=== PATIENT | male | born 1965 | race Caucasian/White ===

== ENCOUNTER 2022-11-02 09:57 | Inpatient (IN) | payer MEDICAID, SELFPAY ==
[2022-11-02] VITALS (7 sets, daily range): BP systolic 136–173; BP diastolic 86–101; PULSE 77–131; RESP 18–26; TEMP 35.6–37.2; O2SAT 96–98; BMI 32.1
--- NOTE | 2022-11-02 10:13 | EX.ED.SAOD ---
HPI History of Present Illness Chief Complaint: Substance Abuse Narrative Narrative: 57-year-old male past medical history of diabetes, hypertension, alcoholism last went through rehab sometime last year presents with withdrawal from alcohol. He states he drinks 1/5 of whiskey daily. He has done so for years. He states he was sober for a while, but started drinking alcohol again. His last drink was at 5:00 this morning, over 5 hours ago. He states he went to [facility] who sent him here for detox/rehab. He complains of abdominal pain with nausea and shakiness. [facility] Medical History (Updated 11/02/22 @ 12:15 by Kevin Tucker MD) Back fracture COPD (chronic obstructive pulmonary disease) Diabetes Hypertension Liver cirrhosis Home Medications albuterol sulfate 90 mcg/actuation aerosol inhaler 2 puff inhalation Q6H PRN COPD 11/02/22 [History Last Taken 10/31/22] dicyclomine 10 mg capsule 10 mg PO ACHS IBS 11/02/22 [History Last Taken 11/01/22] dulaglutide 0.75 mg/0.5 mL subcutaneous pen injector (Trulicity) 0.75 mg subcut QWEEK DM 11/02/22 [History Last Taken 2 Weeks Ago ~10/19/22] folic acid 1 mg tablet 1 mg PO DAILY SUPPLEMENT 11/02/22 [History Last Taken 11/01/22] gabapentin 600 mg tablet 600 mg PO TID NERVE PAIN 11/02/22 [History Last Taken 11/01/22] ibuprofen 400 mg tablet 800 mg PO BID PRN PRN Moderate Pain (Scale Score 5-6) 11/02/22 [History Last Taken 11/01/22] insulin glargine 100 unit/mL (3 mL) subcutaneous pen (Basaglar KwikPen U-100 Insulin) 50 unit subcut BID DM 11/02/22 [History Last Taken 11/01/22] losartan 100 mg tablet 100 mg PO DAILY BP 11/02/22 [History Last Taken 11/01/22] metformin 500 mg tablet 500 mg PO BIDCM DM 11/02/22 [History Last Taken 11/01/22] multivitamin with folic acid 400 mcg tablet (Therems Multivitamin) 1 tab PO DAILY SUPPLEMENT 11/02/22 [History Last Taken 11/01/22] nortriptyline 25 mg capsule 25 mg PO DAILY@1800 DEPRESSION 11/02/22 [History Last Taken 11/01/22] pioglitazone 30 mg tablet 30 mg PO DAILY DM 11/02/22 [History Last Taken Unknown] sodium chloride 1,000 mg soluble tablet 1,000 mg PO TID SUPPLEMENT 11/02/22 [History Last Taken 11/01/22] thiamine HCl (vitamin B1) 100 mg tablet 100 mg PO DAILY SUPPLEMENT 11/02/22 [History Last Taken 11/01/22] tiotropium bromide 18 mcg capsule with inhalation device (Spiriva with HandiHaler) 18 mcg inhalation DAILY COPD 11/02/22 [History Last Taken 10/31/22] tizanidine 4 mg tablet 4 mg PO DAILY PRN Muscle Spasm 11/02/22 [History Last Taken 11/01/22] Allergy/AdvReac Type Severity Reaction Status Date / Time No Known Allergies Allergy Verified 11/02/22 09:58 Social History Smoking Status: Current every day smoker tobacco type: cigarettes ROS ROS ED ROS Narrative Constitutional: No fever, no chills. HEENT: No sore throat. No neck pain. No loss of vision. No rhinorrhea. Cardiovascular: No chest pain. No palpitations. No pedal edema. Respiratory: No cough, no shortness of breath. Abdominal: Positive abdominal pain. Positive nausea. No vomiting. Genitourinary: No dysuria. No hematuria. Musculoskeletal: No myalgias. No arthralgias. Neurologic: No headaches. No dizziness. No lightheadedness. Shakiness and tremors. Skin: No rash. No change in color. Psychiatric: No depression. No anxiety. EXAM Physical Exam Narrative Exam Narrative: Afebrile. Vital signs noted. HEENT: Normocephalic. Atraumatic. PERRL, EOMI. Neck soft and supple. No point tenderness or step off. Cardiovascular: Positive tachycardia, no murmurs, rubs, or gallops appreciated. Respiratory: No tachypnea. Lungs clear to auscultation bilaterally. Gastrointestinal: Abdomen soft, nontender, with normoactive bowel sounds. No rebound or guarding. Neurological: Awake. Alert. Nonfocal, nonlateralizing. Skin: No rash. Normal color. No pallor. Musculoskeletal: No pedal edema. Full range of motion extremities. Const Vital Signs: 11/02/22 09:58 Temperature 96.0 F L Temperature Source Temporal Pulse Rate 124 H Respiratory Rate 20 H Blood Pressure 154/100 H Blood Pressure Mean 118 Pulse Ox 97 Oxygen Delivery Method Room Air MDM MDM MDM Narrative Medical decision making narrative: Medical screening labs obtained including CBC, CMP, I will add a lipase. Alcohol level and urine for drugs of abuse was also added. Patient is tachycardic and has elevated blood pressure of 154/100, but he does have a history of hypertension. Additionally, he complained of shakiness, but his tremor stopped with intention and sitting on the cot. CBC shows normal white count of 8.3, hemoglobin 12.7, platelet count slightly low at 123 consistent with his alcoholism. Sodium is slightly low at 134, potassium of 3.4. Glucose elevated at 282 consistent with his diabetes but he has a normal anion gap of 12. Ethyl alcohol is elevated at 222. He requested a nicotine patch as he is a pack and a half a day smoker. Additionally, he complained to the RN of shakiness so he was administered Ativan 1 mg intravenously. Patient was discussed with Dr. Fuentes for admission. I do not feel that he is in active withdrawal as his blood alcohol level is over 200. I feel he can be admitted to the general medical floor and does not require ICU care at this time. Patient is in stable condition. Lab Data Attestation: I reviewed the patient's lab results. Labs: Laboratory Results - last 24 hr 11/02/22 11/02/22 11/02/22 10:20 10:20 10:20 WBC 8.3 RBC 5.09 Hgb 12.7 L Hct 39.3 L MCV 77.2 L MCH 25.0 L MCHC 32.3 RDW Std Deviation 50.7 H RDW Coeff of Gregorio 18.3 H Plt Count 123 L MPV 10.7 Immature Gran % (Auto) 0.500 Neut % (Auto) 71.0 H Lymph % (Auto) 19.6 [place] % (Auto) 6.3 Eos % (Auto) 1.8 Baso % (Auto) 0.8 Absolute Neuts (auto) 5.9 Absolute Lymphs (auto) 1.63 Nucleated RBC % 0 Sodium 134 L Potassium 3.4 L Chloride 100 Carbon Dioxide 22.0 Anion Gap 12 BUN 7 Creatinine 1.29 Estim Creat Clear Calc 65.67 Est GFR (MDRD) Af Amer 73 Est GFR (MDRD) Non-Af 61 BUN/Creatinine Ratio 5.4 L Glucose 282 H Calcium 8.3 L Total Bilirubin 0.90 AST 51 H ALT 36 Alkaline Phosphatase 199 H Total Protein 8.5 H Albumin 4.0 Globulin 4.5 H Albumin/Globulin Ratio 0.9 Lipase 174 Ur Drug Screen Comment Ethyl Alcohol 222.0 POC Glucose 11/02/22 11/02/22 10:32 11:55 WBC RBC Hgb Hct MCV MCH MCHC RDW Std Deviation RDW Coeff of Gregorio Plt Count MPV Immature Gran % (Auto) Neut % (Auto) Lymph % (Auto) [place] % (Auto) Eos % (Auto) Baso % (Auto) Absolute Neuts (auto) Absolute Lymphs (auto) Nucleated RBC % Sodium Potassium Chloride Carbon Dioxide Anion Gap BUN Creatinine Estim Creat Clear Calc Est GFR (MDRD) Af Amer Est GFR (MDRD) Non-Af BUN/Creatinine Ratio Glucose Calcium Total Bilirubin AST ALT Alkaline Phosphatase Total Protein Albumin Globulin Albumin/Globulin Ratio Lipase Ur Drug Screen Comment Ethyl Alcohol POC Glucose 279 H Discharge Plan Dx/Rx/DC Orders Clinical Impression: Alcoholism, Desire for detoxification, Shakiness Disposition Disposition: Acute Care Hospital [facility]
[2022-11-02] MEDS: Ondansetron 4 MG/2 ML Vial IV (10:25)
[2022-11-02] MEDS: 0.9% Normal Saline 1,000 ML 999 ML IV (10:25)
[2022-11-02 10:38] LABS: Absolute Lymphocyte Count 1.63 X10^3/uL (0.83-4.51); Absolute Neutrophil Count 5.9 X10^3/uL (2.0-7.7); Basophil# 0.07 X10^3/uL; Basophil% 0.8 % (0-1); Eosinophil# 0.15 X10^3/uL; Eosinophils% 1.8 % (0-5); Hematocrit 39.3 % (40-54); Hemoglobin 12.7 g/dL (13.0-16.5); Lymphocyte # 1.63 X10^3/ul (0.83-4.51); Lymphocyte % 19.6 % (19-41); Mean Corp Hgb Conc 32.3 g/dL (32-36); Mean Corpuscular Volume 77.2 fL (80-94); Mean Platelet Vol. 10.7 fl (6.2-12.0); Monocyte# 0.52 X10^3/uL; Monocyte% 6.3 % (0-10); NRBC Flagged by Analyzer 0 % (0-5); Neutrophil # 5.89 X10^3/uL (2.7-7.7); Platelet Count 123 K/mm3 (150-450); RBC Distribution Width CV 18.3 % (11.6-14.6); RBC Distribution Width SD 50.7 fl (35.1-43.9); Red Blood Count 5.09 M/mm3 (4.6-6.2); White Blood Count 8.3 K/mm3 (4.4-11.0)
[2022-11-02] MEDS: LORazepam 2 MG/ML Syringe 1 MG IV ×2 (10:40→20:36)
[2022-11-02 10:50] LABS: ALB/GLOB Ratio 0.9 RATIO (0.9-2.4); AST(SGOT) 51 U/L (15-37); Alanine Aminotransfer ALT/SGPT 36 U/L (16-61); Alkaline Phosphatase 199 U/L (45-117); Anion Gap 12 (5-15); BUN 7 mg/dL (7-18); BUN/Creat Ratio 5.4 RATIO (10-20); Calcium,Total 8.3 mg/dL (8.5-10.1); Chloride 100 mmol/L (98-107); Creatinine, Serum 1.29 mg/dL (0.70-1.30); EST Glomerular Filtration Rate 61 mL/min (>60); Est Glom Filt Rate - Afr Amer 73 mL/min (>60); Estimated Creatinine Clearance 65.67 ml/min; Globulin 4.5 g/dL (2.2-4.2); Glucose 282 mg/dL (74-106); Lipase 174 U/L (73-393); Potassium 3.4 mmol/L (3.5-5.1); Protein, Total 8.5 g/dL (6.4-8.2); Sodium Level 134 mmol/L (136-145)
[2022-11-02 10:56] LABS: Bedside Glucose 279 mg/dL (74-106)
[2022-11-02 12:17] LABS: Amphetamine Urine VISTA NEGATIVE (<1000 ng/mL); Barbiturate Urine VISTA NEGATIVE (< 200 ng/mL); Benzodiazepine Urine VISTA NEGATIVE (< 200 ng/mL); Cocaine Urine VISTA NEGATIVE (< 300 ng/mL); Ecstacy Urine VISTA NEGATIVE (< 500 ng/mL); Methadone Urine VISTA NEGATIVE (< 300 ng/mL); PCP Urine VISTA NEGATIVE (< 25 ng/mL); THC Urine VISTA NEGATIVE (< 50 ng/mL); Vista UDS pH Range 6
--- NOTE | 2022-11-02 12:23 | CHAPLAIN ---
Type of Pastoral Visit _x__ Initial Visit ___ Follow-up Visit ___ On-call Visit ___ General Patient Visit ___ Spiritual Assessment ___ Family Conference ___ Bereavement ___ Rapid Response ___ Code Blue ___ Other (describe below) Pastoral Care Referral From _x__ Patient ___ Family ___ Nurse ___ Physician ___ Welt Stitcher ___ Television And Radio Repairer ___ Other (describe below) Sacrament/Intervention _x__ Active listening ___ Anointing ___ Jehovah'S Witness ___ Bereavement ___ Communion _x__ Keri exploration ___ _x__ Life review _x__ Prayer ___ Reconciliation ___ Sacrament of Sick _x__ Supportive presence ___ Wedding ___ Other (describe below) Pastoral Comments while in ED the patient requested spiritual care support; pt is to enter the [facility] program and desires daily visits if possible to encourage and talk with him; pt states that family is a mess and I don't know how I got this way after not drinking until seven years ago; pt requesting support to become sober; pt states he may move away from family to a warmer climate; pt states that he is a Church and knows that God is what he needs for help
--- NOTE | 2022-11-02 12:23 | PCM.HP.STD ---
HPI - General General Date of Admission: 11/02/22 Date of Service: 11/02/22 Chief Complaint: Tremors HPI Narrative ONIEL URIARTE, is a 57 M with past medical history is again for alcohol dependence who presents with tremoring. Patient did present to the emergency department expressing the desire to undergo detoxification. He admitted to drinking 1/5 of whiskey daily last drink was around 2 AM on the morning of his presentation. His assessment in the emergency department was consistent with alcohol intoxication and early withdrawal. Admitted to the regular nursing floor for further management [facility] Medical History Back fracture COPD (chronic obstructive pulmonary disease) Diabetes Hypertension Liver cirrhosis Home Medications albuterol sulfate 90 mcg/actuation aerosol inhaler 2 puff inhalation Q6H PRN COPD 11/02/22 [History Last Taken 10/31/22] dicyclomine 10 mg capsule 10 mg PO ACHS IBS 11/02/22 [History Last Taken 11/01/22] dulaglutide 0.75 mg/0.5 mL subcutaneous pen injector (Trulicity) 0.75 mg subcut QWEEK DM 11/02/22 [History Last Taken 2 Weeks Ago ~10/19/22] folic acid 1 mg tablet 1 mg PO DAILY SUPPLEMENT 11/02/22 [History Last Taken 11/01/22] gabapentin 600 mg tablet 600 mg PO TID NERVE PAIN 11/02/22 [History Last Taken 11/01/22] ibuprofen 400 mg tablet 800 mg PO BID PRN PRN Moderate Pain (Scale Score 5-6) 11/02/22 [History Last Taken 11/01/22] insulin glargine 100 unit/mL (3 mL) subcutaneous pen (Basaglar KwikPen U-100 Insulin) 50 unit subcut BID DM 11/02/22 [History Last Taken 11/01/22] losartan 100 mg tablet 100 mg PO DAILY BP 11/02/22 [History Last Taken 11/01/22] metformin 500 mg tablet 500 mg PO BIDCM DM 11/02/22 [History Last Taken 11/01/22] multivitamin with folic acid 400 mcg tablet (Therems Multivitamin) 1 tab PO DAILY SUPPLEMENT 11/02/22 [History Last Taken 11/01/22] nortriptyline 25 mg capsule 25 mg PO DAILY@1800 DEPRESSION 11/02/22 [History Last Taken 11/01/22] pioglitazone 30 mg tablet 30 mg PO DAILY DM 11/02/22 [History Last Taken Unknown] sodium chloride 1,000 mg soluble tablet 1,000 mg PO TID SUPPLEMENT 11/02/22 [History Last Taken 11/01/22] thiamine HCl (vitamin B1) 100 mg tablet 100 mg PO DAILY SUPPLEMENT 11/02/22 [History Last Taken 11/01/22] tiotropium bromide 18 mcg capsule with inhalation device (Spiriva with HandiHaler) 18 mcg inhalation DAILY COPD 11/02/22 [History Last Taken 10/31/22] tizanidine 4 mg tablet 4 mg PO DAILY PRN Muscle Spasm 11/02/22 [History Last Taken 11/01/22] Allergy/AdvReac Type Severity Reaction Status Date / Time No Known Allergies Allergy Verified 11/02/22 09:58 Family History (Updated 11/02/22 @ 12:[address] Dante Fuentes MD) Father Hypertension Mother Hypertension Social History Smoking Status: Current every day smoker tobacco type: cigarettes ROS ROS Narrative GENERAL: denies fever, chills, night sweats, HEENT: denies headache, sinus congestion, RESPIRATORY: denies cough, sputum production, CARDIAC: denies chest pain, palpitations, orthopnea, PND GASTROINTESTINAL: denies abdominal pain, nausea, vomiting, melena, GENITOURINARY: denies dysuria, urgency, frequency, heamaturia EXTREMITY: denies swelling MUSCULOSKELETAL: denies current joint pain or tenderness NEUROLOGIC: denies focal numbness, weakness, tingling HEMATOLOGIC: denies easy bruising and/or hemorrhage INTEGUMENT: denies rashes PSYCHIATRIC: denies suicidal or homicidal ideation Vital Signs Vital Signs Vital Signs: 11/02/22 09:58 Temperature 96.0 F L Temperature Source Temporal Pulse Rate 124 H Respiratory Rate 20 H Blood Pressure 154/100 H Blood Pressure Mean 118 Pulse Ox 97 Oxygen Delivery Method Room Air Weight Weight: 104.355 kg Body Mass Index (BMI) 32.1 Physical Exam Narrative GENERAL: cooperative but has tremors at rest HEENT: Atraumatic; normocephalic EYES; Anicteric, Normal Conjunctiva NECK; supple, normal thyroid, RESPIRATORY: Diminished to auscultation CARDIOVASCULAR: Regular S1 S2, GI: soft, normoactive bowel sounds, : No Renal angle tenderness; EXTREMITIES: No edema, no clubbing, MUSCULOSKELETAL: no muscle wasting NEURO: Awake; no lateralizing signs. SKIN: No Rash PSYCH; Flat affect Results Lab / Micro Data Result Diagrams: 11/02/22 10:20 11/02/22 10:20 Labs: Laboratory Results - last 24 hr 11/02/22 10:20: WBC 8.3, RBC 5.09, Hgb 12.7 L, Hct 39.3 L, MCV 77.2 L, MCH 25.0 L, MCHC 32.3, RDW Std Deviation 50.7 H, RDW Coeff of Gregorio 18.3 H, Plt Count 123 L, MPV 10.7, Immature Gran % (Auto) 0.500, Neut % (Auto) 71.0 H, Lymph % (Auto) 19.6, [place] % (Auto) 6.3, Eos % (Auto) 1.8, Baso % (Auto) 0.8, Absolute Neuts (auto) 5.9, Absolute Lymphs (auto) 1.63, Nucleated RBC % 0 11/02/22 10:20: Sodium 134 L, Potassium 3.4 L, Chloride 100, Carbon Dioxide 22.0, Anion Gap 12, BUN 7, Creatinine 1.29, Estim Creat Clear Calc 65.67, Est GFR (MDRD) Af Amer 73, Est GFR (MDRD) Non-Af 61, BUN/Creatinine Ratio 5.4 L, Glucose 282 H, Calcium 8.3 L, Total Bilirubin 0.90, AST 51 H, ALT 36, Alkaline Phosphatase 199 H, Total Protein 8.5 H, Albumin 4.0, Globulin 4.5 H, Albumin/Globulin Ratio 0.9, Lipase 174 11/02/22 10:20: Ethyl Alcohol 222.0 11/02/22 10:32: POC Glucose 279 H 11/02/22 11:55: Urine Opiates Screen NEGATIVE, Urine Methadone Screen NEGATIVE, Ur Barbiturates Screen NEGATIVE, Ur Phencyclidine Scrn NEGATIVE, Ur Amphetamines Screen NEGATIVE, MDMA (Ecstasy) Screen NEGATIVE, U Benzodiazepines Scrn NEGATIVE, Urine Cocaine Screen NEGATIVE, U Cannabinoids Screen NEGATIVE, Ur Drug Screen Comment Assessment & Plan Assessment/Plan (1) Alcoholism: (2) Desire for detoxification: PLAN: Plan Patient is a 57-year-old gentleman presented with acute alcohol withdrawal 1. Acute alcohol withdrawal - has been admitted to regular nursing floor being managed with phenobarb taper 2. Diabetes mellitus type II -patient's oral hypoglycemics held. Placed on long acting insulin, Accu-Cheks a.c. and at bedtime and covered with sliding scale insulin 3. COPD ? Did continue patient home medications 4. Cirrhosis of the liver -secondary to chronic alcohol use. Counseled on cessation 5. Mild thrombocytopenia ? Secondary to patient cirrhosis of the liver as well as chronic alcohol use 6. Hypertension - Blood pressure controlled, home medications continued with dose adjustment as needed 7. DVT prophylaxis ? Bilateral SCDs Charges/Coding Visit Charges Inpatient E&M: 65905 Init Hosp L2
--- NOTE | 2022-11-02 13:10 | CM.ED ---
Language Pathologist Patient admitting to [facility]. Telephone call to addiction therapist, Harriett. Harriett updated on patient admission. Nayeli Varghese MSW, JOSR-S
[2022-11-02] MEDS: Ibuprofen 600 MG Tablet PO ×2 (13:36→21:42)
[2022-11-02] MEDS: hydrOXYzine PAM 25 MG Capsule 50 MG PO ×3 (13:36→21:51)
[2022-11-02] MEDS: Phenobarbital 32.4 MG Tablet 64.8 MG PO ×3 (13:37→21:43)
[2022-11-02] MEDS: Lactated Ringers 1,000 ML 125 ML IV (13:45)
[2022-11-02] MEDS: Mag Hydrox/Al Hydrox/Simeth 30 ML UDC PO (14:31)
[2022-11-02] MEDS: Gabapentin 600 MG Tablet PO ×2 (14:31→21:42)
--- NOTE | 2022-11-02 15:24 | NURSING ---
pt requesting aerosol Rx, CPS called
[2022-11-02] MEDS: Ipratropium 0.5 MG/2.5 ML SOLUTION INHALATION (15:37)
[2022-11-02] MEDS: Ondansetron 8 MG Tablet PO (16:01)
[2022-11-02] MEDS: Sodium Chloride 1 GM Tablet PO ×2 (16:01→21:42)
[2022-11-02] MEDS: Dicyclomine 10 MG Capsule PO ×2 (16:01→21:42)
[2022-11-02] MEDS: Insulin Lispro 100 UNIT/ML INSULN.PEN SC (16:04)
[2022-11-02 16:15] LABS: Lipase 174 U/L (73-393)
[2022-11-02 16:31] LABS: Bedside Glucose 179 mg/dL (74-106)
[2022-11-02] MEDS: Nortriptyline 25 MG Capsule PO (17:11)
[2022-11-02] MEDS: proMETHazine 25 MG/ML Syringe 12.5 MG IM (17:58)
[2022-11-02] MEDS: Pantoprazole Sodium 40 MG Tablet PO (17:59)
[2022-11-02] MEDS: LORazepam 2 MG/ML Syringe IV (17:59)
[2022-11-02] MEDS: 0.9% Saline Lock 10 ML Syringe IV ×2 (17:59→20:36)
[2022-11-02] MEDS: Losartan Potassium 100 MG Tablet PO (18:09)
[2022-11-02] MEDS: MELATONIN 3 MG TABLET PO (21:42)
[2022-11-02 23:41] LABS: Bedside Glucose 136 mg/dL (74-106)
[2022-11-03 01:16] VITALS: BP 136/82; PULSE 115; RESP 20; TEMP 36.8; O2SAT 94
[2022-11-03] MEDS: Phenobarbital 32.4 MG Tablet 64.8 MG PO ×6 (01:18→21:15)
[2022-11-03 04:18] VITALS: BP 153/92; PULSE 114; RESP 18; TEMP 36.3; O2SAT 98
[2022-11-03] MEDS: hydrOXYzine PAM 25 MG Capsule 50 MG PO ×2 (04:25→20:15)
[2022-11-03] MEDS: Ondansetron 8 MG Tablet PO (04:25)
[2022-11-03] MEDS: Sodium Chloride 1 GM Tablet PO ×3 (06:40→21:21)
[2022-11-03] MEDS: Dicyclomine 10 MG Capsule PO ×4 (06:41→21:16)
[2022-11-03] MEDS: Gabapentin 600 MG Tablet PO ×3 (06:41→21:16)
[2022-11-03 07:50] LABS: Bedside Glucose 192 mg/dL (74-106)
[2022-11-03] MEDS: Insulin Lispro 100 UNIT/ML INSULN.PEN SC ×3 (07:50→21:17)
[2022-11-03] MEDS: Insulin Lispro 100 UNIT/ML INSULN.PEN 10 UNIT SC ×3 (07:51→15:56)
[2022-11-03] MEDS: Pantoprazole Sodium 40 MG Tablet PO (07:52)
[2022-11-03] MEDS: Thiamine Hydrochloride 100 MG Tablet PO (07:52)
[2022-11-03] MEDS: Folic Acid 1 MG Tablet PO (07:52)
--- NOTE | 2022-11-03 07:54 | PCM.PN.HOSP ---
Subjective Subjective Patient did experience significant symptoms resulting in patient being given extra medications including Ativan. Seen this a.m. appears quite lethargic. Objective Data Objective Data Vital Signs: Vital Signs Temp Pulse Resp BP Pulse Ox O2 Del Method 97.4 F L 114 H 18 153/92 H 98 Room Air 11/03/22 04:18 11/03/22 04:18 11/03/22 04:18 11/03/22 04:18 11/03/22 04:18 11/03/22 04:18 Oxygen Delivery Method Room Air Weight: 104.326 kg Body Mass Index (BMI) 32.1 Intake & Output: Intake and Output for Last 24 Hours 11/01/22 11/02/22 11/03/22 23:59 23:59 23:59 Intake Total 2785.42 / 2785.42 800 / 800 Balance 2785.42 / 2785.42 800 / 800 Lab / Micro Data Result Diagrams: 11/02/22 10:20 11/02/22 10:20 Labs: Laboratory Results - last 24 hr 11/02/22 10:20: WBC 8.3, RBC 5.09, Hgb 12.7 L, Hct 39.3 L, MCV 77.2 L, MCH 25.0 L, MCHC 32.3, RDW Std Deviation 50.7 H, RDW Coeff of Gregorio 18.3 H, Plt Count 123 L, MPV 10.7, Immature Gran % (Auto) 0.500, Neut % (Auto) 71.0 H, Lymph % (Auto) 19.6, [place] % (Auto) 6.3, Eos % (Auto) 1.8, Baso % (Auto) 0.8, Absolute Neuts (auto) 5.9, Absolute Lymphs (auto) 1.63, Nucleated RBC % 0 11/02/22 10:20: Sodium 134 L, Potassium 3.4 L, Chloride 100, Carbon Dioxide 22.0, Anion Gap 12, BUN 7, Creatinine 1.29, Estim Creat Clear Calc 65.67, Est GFR (MDRD) Af Amer 73, Est GFR (MDRD) Non-Af 61, BUN/Creatinine Ratio 5.4 L, Glucose 282 H, Calcium 8.3 L, Total Bilirubin 0.90, AST 51 H, ALT 36, Alkaline Phosphatase 199 H, Total Protein 8.5 H, Albumin 4.0, Globulin 4.5 H, Albumin/Globulin Ratio 0.9, Lipase 174 11/02/22 10:20: Ethyl Alcohol 222.0 11/02/22 10:20: Lipase 174 11/02/22 10:32: POC Glucose 279 H 11/02/22 11:55: Urine Opiates Screen NEGATIVE, Urine Methadone Screen NEGATIVE, Ur Barbiturates Screen NEGATIVE, Ur Phencyclidine Scrn NEGATIVE, Ur Amphetamines Screen NEGATIVE, MDMA (Ecstasy) Screen NEGATIVE, U Benzodiazepines Scrn NEGATIVE, Urine Cocaine Screen NEGATIVE, U Cannabinoids Screen NEGATIVE, Ur Drug Screen Comment 11/02/22 16:02: POC Glucose 179 H 11/02/22 21:37: POC Glucose 136 H 11/03/22 07:32: POC Glucose 192 H Physical Exam Narrative GENERAL:has tremors at rest HEENT: Atraumatic; normocephalic EYES; Anicteric, Normal Conjunctiva NECK; supple, normal thyroid, RESPIRATORY: Diminished to auscultation CARDIOVASCULAR: Regular S1 S2, GI: soft, normoactive bowel sounds, : No Renal angle tenderness; EXTREMITIES: No edema, no clubbing, MUSCULOSKELETAL: no muscle wasting NEURO: Awake; no lateralizing signs. SKIN: No Rash PSYCH; Flat affect Assessment & Plan Assessment/Plan (1) Alcoholism: (2) Desire for detoxification: PLAN: Plan Patient is a 57-year-old gentleman presented with acute alcohol withdrawal 1. Acute alcohol withdrawal - has been admitted to regular nursing floor being managed with phenobarb taper ? 11/03/2022 patient has significant symptoms additional Ativan given to his phenobarb taper 2. Diabetes mellitus type II -patient's oral hypoglycemics held. Placed on long acting insulin, Accu-Cheks a.c. and at bedtime and covered with sliding scale insulin 3. COPD ? Did continue patient home medications 4. Cirrhosis of the liver -secondary to chronic alcohol use. Counseled on cessation 5. Mild thrombocytopenia ? Secondary to patient cirrhosis of the liver as well as chronic alcohol use 6. Hypertension - Blood pressure controlled, home medications continued with dose adjustment as needed 7. DVT prophylaxis ? Bilateral SCDs Charges/Coding Visit Charges Inpatient E&M: 44867 Subs Hosp L2
[2022-11-03 08:15] VITALS: BP 136/98; PULSE 107; RESP 18; TEMP 36.8; O2SAT 96
[2022-11-03] MEDS: Insulin Glargine-YFGN 100 UNIT/ML Pen 50 UNIT SC ×2 (09:57→21:16)
[2022-11-03] MEDS: Losartan Potassium 100 MG Tablet PO (11:12)
[2022-11-03 11:36] LABS: Bedside Glucose 147 mg/dL (74-106)
--- NOTE | 2022-11-03 12:01 | CHAPLAIN ---
Type of Pastoral Visit ___ Initial Visit _x__ Follow-up Visit ___ On-call Visit ___ General Patient Visit ___ Spiritual Assessment ___ Family Conference ___ Bereavement ___ Rapid Response ___ Code Blue ___ Other (describe below) Pastoral Care Referral From _x__ Patient ___ Family ___ Nurse ___ Physician ___ Quality Control Supervisor ___ Key Bed Installer ___ Other (describe below) Sacrament/Intervention _x__ Active listening ___ Anointing ___ Buddhist ___ Bereavement ___ Communion ___ Keri exploration ___ ___ Life review _x__ Prayer ___ Reconciliation ___ Sacrament of Sick _x__ Supportive presence ___ Wedding ___ Other (describe below) Pastoral Comments follow up visit as requested by this patient from yesterday; pt states that he is feeling better than yesterday and could sleep, although not in the bed; pt says that he is seriously considering his plan to sell possessions and move to [place]; pt has no contacts there but just wants to get to warmer climate and start over; pt agrees that he needs good support system and that finding a christian would be beneficial; pt welcomes presence and prayer
[2022-11-03] MEDS: Ibuprofen 600 MG Tablet PO (13:51)
[2022-11-03 14:15] VITALS: BP 151/93; PULSE 108; RESP 18; TEMP 36.4; O2SAT 97
[2022-11-03 16:26] LABS: Bedside Glucose 199 mg/dL (74-106)
[2022-11-03] MEDS: Nortriptyline 25 MG Capsule PO (17:50)
[2022-11-03] MEDS: Lidocaine 5% Patch 2 PATCH TOPICAL (17:51)
[2022-11-03 19:45] VITALS: BP 152/97; PULSE 117; RESP 18; TEMP 36.6; O2SAT 96
[2022-11-03] MEDS: MELATONIN 3 MG TABLET PO (21:16)
[2022-11-03 21:40] LABS: Bedside Glucose 289 mg/dL (74-106)
[2022-11-04] MEDS: Ibuprofen 600 MG Tablet PO ×2 (01:18→12:25)
[2022-11-04] MEDS: Phenobarbital 32.4 MG Tablet 64.8 MG PO ×6 (01:18→20:48)
[2022-11-04 01:35] VITALS: BP 124/102; PULSE 114; RESP 18; TEMP 37; O2SAT 96
[2022-11-04] MEDS: Dicyclomine 10 MG Capsule PO ×4 (06:11→20:48)
[2022-11-04] MEDS: Gabapentin 600 MG Tablet PO ×3 (06:11→20:48)
[2022-11-04] MEDS: Sodium Chloride 1 GM Tablet PO ×3 (06:12→20:48)
--- NOTE | 2022-11-04 07:22 | PCM.PN.HOSP ---
Subjective Subjective Patient seen less tremulous compared to previous day symptoms improving. We will continue with current phenobarb taper. Objective Data Objective Data Vital Signs: Vital Signs Temp Pulse Resp BP Pulse Ox O2 Del Method 98.6 F 114 H 18 124/102 H 96 Room Air 11/04/22 01:35 11/04/22 01:35 11/04/22 01:35 11/04/22 01:35 11/04/22 01:35 11/04/22 01:35 Oxygen Delivery Method Room Air Weight: 104.326 kg Body Mass Index (BMI) 32.1 Intake & Output: Intake and Output for Last 24 Hours 11/02/22 11/03/22 11/04/22 23:59 23:59 23:59 Intake Total 2785.42 / 2785.42 920 / 920 Balance 2785.42 / 2785.42 920 / 920 Lab / Micro Data Result Diagrams: 11/02/22 10:20 11/02/22 10:20 Labs: Laboratory Results - last 24 hr 11/03/22 07:32: POC Glucose 192 H 11/03/22 11:11: POC Glucose 147 H 11/03/22 15:54: POC Glucose 199 H 11/03/22 21:15: POC Glucose 289 H Physical Exam Narrative GENERAL:has tremors at rest HEENT: Atraumatic; normocephalic EYES; Anicteric, Normal Conjunctiva NECK; supple, normal thyroid, RESPIRATORY: Diminished to auscultation CARDIOVASCULAR: Regular S1 S2, GI: soft, normoactive bowel sounds, : No Renal angle tenderness; EXTREMITIES: No edema, no clubbing, MUSCULOSKELETAL: no muscle wasting NEURO: Awake; no lateralizing signs. SKIN: No Rash PSYCH; Flat affect Assessment & Plan Assessment/Plan (1) Alcoholism: (2) Desire for detoxification: PLAN: Plan Patient is a 57-year-old gentleman presented with acute alcohol withdrawal 1. Acute alcohol withdrawal - has been admitted to regular nursing floor being managed with phenobarb taper ? 11/03/2022 patient has significant symptoms additional Ativan given to his phenobarb taper -11/04/2022; Patient seen less tremulous compared to previous day symptoms improving. We will continue with current phenobarb taper. 2. Diabetes mellitus type II -patient's oral hypoglycemics held. Placed on long acting insulin, Accu-Cheks a.c. and at bedtime and covered with sliding scale insulin 3. COPD ? Did continue patient home medications 4. Cirrhosis of the liver -secondary to chronic alcohol use. Counseled on cessation 5. Mild thrombocytopenia ? Secondary to patient cirrhosis of the liver as well as chronic alcohol use 6. Hypertension - Blood pressure controlled, home medications continued with dose adjustment as needed 7. DVT prophylaxis ? Bilateral SCDs Charges/Coding Visit Charges Inpatient E&M: 09668 Subs Hosp L2
[2022-11-04] MEDS: Losartan Potassium 100 MG Tablet PO (07:36)
[2022-11-04] MEDS: Folic Acid 1 MG Tablet PO (07:37)
[2022-11-04] MEDS: Pantoprazole Sodium 40 MG Tablet PO (07:37)
[2022-11-04] MEDS: Thiamine Hydrochloride 100 MG Tablet PO (07:37)
[2022-11-04 08:10] LABS: Bedside Glucose 94 mg/dL (74-106)
[2022-11-04 08:33] VITALS: BP 149/80; PULSE 100; RESP 18; TEMP 36.4; O2SAT 96
[2022-11-04] MEDS: Insulin Glargine-YFGN 100 UNIT/ML Pen 50 UNIT SC ×2 (09:52→20:49)
[2022-11-04 10:16] LABS: Bedside Glucose 272 mg/dL (74-106)
[2022-11-04] MEDS: Insulin Lispro 100 UNIT/ML INSULN.PEN 10 UNIT SC ×2 (10:47→16:56)
[2022-11-04] MEDS: Insulin Lispro 100 UNIT/ML INSULN.PEN SC ×3 (10:47→20:49)
[2022-11-04] MEDS: Lidocaine 5% Patch 2 PATCH TOPICAL (12:26)
[2022-11-04 14:33] VITALS: BP 145/94; PULSE 104; RESP 18; TEMP 36.4; O2SAT 99
[2022-11-04 17:21] LABS: Bedside Glucose 158 mg/dL (74-106)
[2022-11-04] MEDS: Nortriptyline 25 MG Capsule PO (17:48)
[2022-11-04 20:36] VITALS: BP 136/91; PULSE 114; RESP 18; TEMP 36.8; O2SAT 98
[2022-11-04] MEDS: MELATONIN 3 MG TABLET PO (20:48)
[2022-11-04 21:11] LABS: Bedside Glucose 162 mg/dL (74-106)
[2022-11-05] MEDS: Ibuprofen 600 MG Tablet PO (02:31)
[2022-11-05] MEDS: Phenobarbital 32.4 MG Tablet 64.8 MG PO ×2 (02:31→10:46)
[2022-11-05 02:34] VITALS: BP 140/95; PULSE 115; RESP 18; TEMP 36.8; O2SAT 96
[2022-11-05 02:46] LABS: Bedside Glucose 196 mg/dL (74-106)
[2022-11-05] MEDS: Gabapentin 600 MG Tablet PO (06:25)
[2022-11-05] MEDS: Sodium Chloride 1 GM Tablet PO (06:26)
[2022-11-05] MEDS: Dicyclomine 10 MG Capsule PO ×2 (06:26→10:49)
[2022-11-05] MEDS: Pantoprazole Sodium 40 MG Tablet PO (08:32)
[2022-11-05] MEDS: Thiamine Hydrochloride 100 MG Tablet PO (08:32)
[2022-11-05] MEDS: Folic Acid 1 MG Tablet PO (08:32)
[2022-11-05] MEDS: Lidocaine 5% Patch 2 PATCH TOPICAL (08:32)
[2022-11-05] MEDS: Losartan Potassium 100 MG Tablet PO (08:32)
[2022-11-05 08:38] VITALS: BP 139/99; PULSE 103; RESP 17; TEMP 37; O2SAT 98
--- NOTE | 2022-11-05 09:27 | DS.PCM_ITS ---
Providers Date of Admission: 11/02/22 Date of Discharge: 11/05/22 Primary Care Physician: REINIER GONZALES Reason For Visit: ALCOHOL DETOX Diagnosis Discharge Diagnosis (1) Alcoholism: Status: Acute Code(s): F10.20 - Alcohol dependence, uncomplicated (2) Desire for detoxification: Status: Acute Plan Patient is a 57-year-old gentleman presented with acute alcohol withdrawal 1. Acute alcohol withdrawal - has been admitted to regular nursing floor being managed with phenobarb taper ? 11/03/2022 patient has significant symptoms additional Ativan given to his phenobarb taper -11/04/2022; Patient seen less tremulous compared to previous day symptoms improving. We will continue with current phenobarb taper. ? 11/05/2022; patient to follow-up with [facility] counseling services as outpatient 2. Diabetes mellitus type II -patient's oral hypoglycemics held. Placed on long acting insulin, Accu-Cheks a.c. and at bedtime and covered with sliding scale insulin 3. COPD ? Did continue patient home medications 4. Cirrhosis of the liver -secondary to chronic alcohol use. Counseled on cessation 5. Mild thrombocytopenia ? Secondary to patient cirrhosis of the liver as well as chronic alcohol use 6. Hypertension - Blood pressure controlled, home medications continued with dose adjustment as needed 7. DVT prophylaxis ? Bilateral SCDs Medications at Discharge Home Medications albuterol sulfate 90 mcg/actuation aerosol inhaler 2 puff inhalation Q6H PRN COPD 11/02/22 dicyclomine 10 mg capsule 10 mg PO ACHS IBS 11/02/22 dulaglutide 0.75 mg/0.5 mL subcutaneous pen injector (Trulicity) 0.75 mg subcut QWEEK DM 11/02/22 folic acid 1 mg tablet 1 mg PO DAILY SUPPLEMENT 11/02/22 gabapentin 600 mg tablet 600 mg PO TID NERVE PAIN 11/02/22 ibuprofen 400 mg tablet 800 mg PO BID PRN PRN Moderate Pain (Scale Score 5-6) 11/02/22 insulin glargine 100 unit/mL (3 mL) subcutaneous pen (Basaglar KwikPen U-100 Insulin) 50 unit subcut BID DM 11/02/22 losartan 100 mg tablet 100 mg PO DAILY BP 11/02/22 metformin 500 mg tablet 500 mg PO BIDCM DM 11/02/22 multivitamin with folic acid 400 mcg tablet (Therems Multivitamin) 1 tab PO DAILY SUPPLEMENT 11/02/22 nortriptyline 25 mg capsule 25 mg PO DAILY@1800 DEPRESSION 11/02/22 pioglitazone 30 mg tablet 30 mg PO DAILY DM 11/02/22 sodium chloride 1,000 mg soluble tablet 1,000 mg PO TID SUPPLEMENT 11/02/22 thiamine HCl (vitamin B1) 100 mg tablet 100 mg PO DAILY SUPPLEMENT 11/02/22 tiotropium bromide 18 mcg capsule with inhalation device (Spiriva with HandiHaler) 18 mcg inhalation DAILY COPD 11/02/22 tizanidine 4 mg tablet 4 mg PO DAILY PRN Muscle Spasm 11/02/22 Hospital Course Summary of Care Provided Minutes Spent on Discharge: 35 Physical Exam Narrative GENERAL: Cooperative HEENT: Atraumatic; normocephalic EYES; Anicteric, Normal Conjunctiva NECK; supple, normal thyroid, RESPIRATORY: Diminished to auscultation CARDIOVASCULAR: Regular S1 S2, GI: soft, normoactive bowel sounds, : No Renal angle tenderness; EXTREMITIES: No edema, no clubbing, MUSCULOSKELETAL: no muscle wasting NEURO: Awake; no lateralizing signs. SKIN: No Rash PSYCH; Flat affect Weight / BMI Weight Weight: 104.326 kg Body Mass Index (BMI) 32.1 ABG / Lab / Microbiology Data Result Diagrams: 11/02/22 10:20 11/02/22 10:20 Laboratory: Laboratory Results - last 24 hr 11/04/22 07:34: POC Glucose 94 11/04/22 09:51: POC Glucose 272 H 11/04/22 16:54: POC Glucose 158 H 11/04/22 20:46: POC Glucose 162 H 11/05/22 02:25: POC Glucose 196 H D/C Instructions Discharge Diet: No restrictions Discharge Activity: Return to Normal Activity Call your doctor if you observe: Fever of 101 or Higher, Shortness of breath, Fainting spells and Chest pain Meaningful Use Info Meaningful Use Diagnoses (Choose all that apply): None applicable Discharge Plan Admission Admit Date/Time: 11/02/22 12:13 Attending Provider: Dante Fuentes Primary Care Provider: REINIER GONZALES Discharge Orders/Prescriptions Prescriptions: Continued metformin 500 mg tablet 500 mg PO BIDCM Label Comments: take 1 tablet by mouth twice a day with meals gabapentin 600 mg tablet 600 mg PO TID Label Comments: TAKE 1/2 TABLET BY MOUTH 3 TIMES A DAY FOR 1 WEEK -- THEN INCREASE TO 1 TABLET 3 TIMES A DAY thiamine HCl (vitamin B1) 100 mg tablet 100 mg PO DAILY Label Comments: take 1 tablet by mouth once daily nortriptyline 25 mg capsule 25 mg PO DAILY@1800 Label Comments: take 1 capsule by mouth every evening AT 6 O'CLOCK ibuprofen 400 mg tablet 800 mg PO BID PRN PRN (Reason: Moderate Pain (Scale Score 5-6)) Label Comments: take 2 tablets by mouth twice a day if needed for mild pain folic acid 1 mg tablet 1 mg PO DAILY Label Comments: take 1 tablet by mouth once daily albuterol sulfate 90 mcg/actuation HFA aerosol inhaler 2 puff INHALATION Q6H PRN (Reason: COPD) Label Comments: inhale 2 puffs by mouth and INTO THE LUNGS every 6 hours if needed for wheezing pioglitazone 30 mg tablet 30 mg PO DAILY Label Comments: take 1 tablet by mouth once daily losartan 100 mg tablet 100 mg PO DAILY Label Comments: take 1 tablet by mouth once daily dicyclomine 10 mg capsule 10 mg PO ACHS Label Comments: take 1 capsule by mouth four times a day before meals and nightly Spiriva with HandiHaler 18 mcg capsule, w/inhalation device 18 mcg INHALATION DAILY Label Comments: PLACE 1 (ONE) CAPSULE (18 MCG TOTAL) INTO INHALER AND INHALE DAILY . sodium chloride 1,000 mg tablet,soluble 1,000 mg PO TID Label Comments: take 1 tablet by mouth three times a day insulin glargine [Basaglar KwikPen U-100 Insulin] 100 unit/mL (3 mL) insulin pen 50 unit SUBCUT BID multivitamin with folic acid [Therems Multivitamin] 400 mcg tablet 1 tab PO DAILY Label Comments: take 1 tablet by mouth daily Trulicity 0.75 mg/0.5 mL pen injector 0.75 mg SUBCUT QWEEK tizanidine 4 mg tablet 4 mg PO DAILY PRN (Reason: Muscle Spasm) Label Comments: take 1 tablet by mouth once daily if needed for muscle spasm DO NOT MIX WITH ALCOHOL Referrals / Follow Up: REINIER GONZALES [[facility]] [facility],Out of [Non-Staff] - Within 1 Week Disposition Disposition (needs filled in before D/C Order can be placed): Home, Self Care
[2022-11-05 09:46] LABS: Bedside Glucose 137 mg/dL (74-106)
[2022-11-05] MEDS: Insulin Glargine-YFGN 100 UNIT/ML Pen 50 UNIT SC (10:47)
--- NOTE | 2022-11-05 11:00 | NURSING ---
per Italo pt is to follow up with [facility] on Monday to do an assessment .
--- NOTE | 2022-11-05 11:57 | NURSING ---
ride was made with pt insurance to pick him up. time of arrival is between 1-3 hours. pt wants to wait downstairs for the ride. d/c instructions given.
== END 2022-11-05 11:55 | disposition home or self-care (01) | DRG 772 ==
LOC: ED 12:15 → MS3 12:30
PROVIDERS: Admitting Provider Internal Medicine; Emergency Provider Emergency Medicine; Visit Provider Internal Medicine
DX: F10.229 Alcohol dependence with intoxication, unspecified (principal); D69.6 Thrombocytopenia, unspecified; K70.30 Alcoholic cirrhosis of liver without ascites; J44.9 Chronic obstructive pulmonary disease, unspecified; E11.65 Type 2 diabetes mellitus with hyperglycemia; Z79.4 Long term (current) use of insulin; F10.239 Alcohol dependence with withdrawal, unspecified; I10 Essential (primary) hypertension; F17.210 Nicotine dependence, cigarettes, uncomplicated; Y90.7 Blood alcohol level of 200-239 mg/100 ml; Z79.899 Other long term (current) drug therapy
CPT/HCPCS: 80053; 80307; 82077; 82962; 83690; 85025; 94640; 99284; 99406; J7030; J7120; A4216; J2405